=== PATIENT | female | born 1975 | race Hispanic/Latino ===

== ENCOUNTER 2021-05-30 16:14 | Outpatient (CLI) | payer BC ==
[2021-05-30 17:46] LABS: Hemoglobin 12.2 g/dL (12.0-15.5); Mean Corpuscular HGB CONC 32.4 g/dL (32.0-36.0); Mean Corpuscular Hemoglobin 27.7 pg (27.0-33.0); Mean Corpuscular Volume 85.7 fl (81.6-98.3); Mean Platelet Volume 10.1 fl (7.4-10.4); Platelet Count 285 10x3/uL (150-450); RBC Distribution Width 13.6 % (11.5-14.5); White Blood Cell (WBC) Count 6.1 10x3/uL (3.5-10.5)
[2021-05-30 18:05] LABS: BHCG - Serum Negative (NEGATIVE); Pregs Control Background? CLEAR/WHITE (CLR/WHITE); Pregs Control Bar Appear? YES (CONTROL BAR)
[2021-05-31 09:13] LABS: SARS-CoV-2 PCR by NAA Not Detected (NotDetected)
== END 2021-05-30 16:15 | disposition home or self-care (01) ==
LOC: CSHLAB 16:14
PROVIDERS: ATTEND Obstetrics & Gynecology
DX: Z01.812 Encounter for preprocedural laboratory examination (principal); Z20.822 Contact with and (suspected) exposure to COVID-19; Z80.3 Family history of malignant neoplasm of breast
CPT/HCPCS: 84703; 85027; 86850; 86900; 86901; U0003; U0005

== ENCOUNTER 2021-06-04 11:24 | Day surgery (SDC) | payer BC ==
[2021-05-23 10:31] VITALS: BMI 38.7
[2021-05-30 17:46] LABS: Hemoglobin 12.2 g/dL (12.0-15.5); Mean Corpuscular HGB CONC 32.4 g/dL (32.0-36.0); Mean Corpuscular Hemoglobin 27.7 pg (27.0-33.0); Mean Corpuscular Volume 85.7 fl (81.6-98.3); Mean Platelet Volume 10.1 fl (7.4-10.4); Platelet Count 285 10x3/uL (150-450); RBC Distribution Width 13.6 % (11.5-14.5); White Blood Cell (WBC) Count 6.1 10x3/uL (3.5-10.5)
[2021-05-30 18:05] LABS: BHCG - Serum Negative (NEGATIVE); Pregs Control Background? CLEAR/WHITE (CLR/WHITE); Pregs Control Bar Appear? YES (CONTROL BAR)
[2021-05-31 09:13] LABS: SARS-CoV-2 PCR by NAA Not Detected (NotDetected)
[2021-06-04] MEDS ORDERED: Gabapentin 300 MG CAP ONE (11:43)
[2021-06-04] MEDS ORDERED: CeleCOXIB 100 MG CAP ONE (11:43)
[2021-06-04] MEDS ORDERED: Famotidine/PF 20 mg/2ml Vial ONE (11:43)
[2021-06-04] MEDS ORDERED: Lidocaine 1% MPF 2 ML VIAL ONE (11:43)
[2021-06-04] MEDS ORDERED: EPINEPHrine 1 MG/ML AMP ONE (14:03)
[2021-06-04] MEDS ORDERED: Bupivacaine PF 0.5% 30 ML VIAL ONE (14:04)
[2021-06-04] MEDS ORDERED: ceFAZolin 2 GM/Dextrose 50 ML IVPB ONE (14:05)
[2021-06-04] MEDS ORDERED: PROPOFOL 20 ML ONE (14:14)
[2021-06-04] MEDS ORDERED: Rocuronium Bromide 10 MG/ML (10ML VIAL) ONE (14:14)
[2021-06-04] MEDS ORDERED: Ketorolac Tromethamine 30 MG/ML VIAL ONE (14:14)
[2021-06-04] MEDS ORDERED: Fentanyl 100 MCG/2 ML VIAL ONE ×2 (14:14→15:31)
[2021-06-04] MEDS ORDERED: Lidocaine 2% PF 5 ML VIAL ONE (14:14)
[2021-06-04] MEDS ORDERED: Metoclopramide HCl 10 MG/2 ML VIAL ONE (14:14)
[2021-06-04] MEDS ORDERED: Midazolam HCl 2 mg/2 ml Vial ONE (14:14)
[2021-06-04] MEDS ORDERED: Glycopyrrolate 0.2 MG/ML 5 ML SYRINGE ONE (14:14)
[2021-06-04] MEDS ORDERED: Dexamethasone 20 MG/5 ML VIAL ONE (14:14)
[2021-06-04] MEDS ORDERED: Ondansetron PF 4 MG/2 ML Vial ONE (14:14)
[2021-06-04] MEDS ORDERED: Lidocaine 1% PF 5 ML VIAL ONE (15:16)
[2021-06-04] MEDS ORDERED: Meperidine HCl/PF 25 MG/ML VIAL ONE (15:31)
== END 2021-06-04 17:37 | disposition home or self-care (01) ==
LOC: CSHSDC 11:24
PROVIDERS: ATTEND Obstetrics & Gynecology
PROC: 0UT74ZZ Resection of Bilateral Fallopian Tubes, Percutaneous Endoscopic Approach (ICD-10-PCS; principal; 2021-06-04)
DX: Z30.2 Encounter for sterilization (principal); N83.8 Other noninflammatory disorders of ovary, fallopian tube and broad ligament; N73.6 Female pelvic peritoneal adhesions (postinfective); E03.9 Hypothyroidism, unspecified; E66.8 Other obesity; Z68.38 Body mass index [BMI] 38.0-38.9, adult; Z79.899 Other long term (current) drug therapy; Z80.3 Family history of malignant neoplasm of breast; Z20.822 Contact with and (suspected) exposure to COVID-19
CPT/HCPCS: 84703; 85027; 86850; 86900; 86901; 88302; J0171; J0690; J1100; J1885; J2001; J2175; J2250; J2405; J2704; J2765; J3010; S0020; S0028; U0003; U0005